=== PATIENT | male | born 1935 | race Caucasian/White ===

== ENCOUNTER → 2017-02-12 | Outpatient (CLI) | payer MEDICARE ==
[~2017-02-12] MED LIST: AMLO5 PO; ATOR10; Aspir 8181 MG; CALMAGZIN PO; LISI20 PO; METF500; METO50ER
== END | disposition home or self-care (01) ==
LOC: LAB SHORT 08:39 → PLD 08:39
DX: D22.5 Melanocytic nevi of trunk (principal)
CPT/HCPCS: 88305

== ENCOUNTER 2020-03-13 22:19 | Inpatient (IN) | payer MEDICARE ==
[~2020-03-13] VITALS: Ht 172.7 cm; Wt 81.7 kg
[2020-03-13 22:42] LABS: BASOPHILS ABSOLUTE AUTO 0.02 K/mm3 (0.00-0.23); BASOPHILS PERCENT AUTO 0 % (0-2); EOSINOPHILS ABSOLUTE AUTO 0.21 K/mm3 (0.00-0.68); EOSINOPHILS PERCENT AUTO 3 % (0-6); Hematocrit 39.6 % (37.0-53.0); Hemoglobin 13.4 g/dL (13.5-17.5); IMMATURE GRAN ABSOLUTE AUTO 0.04 K/mm3 (0.00-0.10); IMMATURE GRAN PERCENT AUTO 1 % (0-1); LYMPHOCYTES ABSOLUTE AUTO 1.77 K/mm3 (0.84-5.20); LYMPHOCYTES PERCENT AUTO 25 % (21-46); MONOCYTES PERCENT AUTO 6 % (4-13); Mean Corpuscular HGB 29.9 pg (26.0-34.0); Mean Corpuscular HGB Conc 33.8 g/dL (31.5-36.5); Mean Corpuscular Volume 88 fL (80-100); Mean Platelet Volume 9.2 fL (9.1-12.4); NEUTROPHILS ABSOLUTE AUTO 4.64 K/mm3 (1.96-9.15); NEUTROPHILS PERCENT AUTO 66 % (41-73); Platelet Count 190 K/mm3 (150-400); RDW Standard Deviation 42.4 fL (35.1-46.3); Red Blood Cell Count 4.48 M/mm3 (4.30-5.90); White Blood Cell Count 7.08 K/mm3 (4.00-11.30)
[2020-03-13 23:02] LABS: Alanine Aminotransfer (ALT/SGP 19 U/L (12-78); Albumin, Blood 3.8 g/dL (3.4-5.0); Alk Phos 168 U/L (50-136); Anion Gap 7 mmol/L (6-16); Aspartate Aminotrans (AST/SGOT 11 U/L (12-37); Bilirubin, Total 0.4 mg/dL (0.1-1.0); Blood Urea Nitrogen 19 mg/dL (8-24); Bun/Creatinine Ratio 13.3 (12.0-20.0); CO2, Blood 26 mmol/L (21-32); Chloride, Blood 106 mmol/L (98-108); Creatinine, Blood 1.43 mg/dL (0.60-1.20); Globulin, Blood 3.9 g/dL (2.2-4.0); Glomerular Filtration Rate 50 (60-); Glucose, Blood 268 mg/dL (70-99); Potassium, Blood 4.2 mmol/L (3.5-5.5); Sodium, Blood 139 mmol/L (136-145); Total Protein, Blood 7.7 g/dL (6.4-8.2); Troponin I <0.015 ng/mL (0.000-0.040)
--- NOTE | 2020-03-14 05:59 | NUR ---
PATIENT ARRIVED ON UNIT FROM ER AT 0515 TODAY 03/14/20. HE CAME INTO THE ER FROM HOME BY AMBULANCE FOR CHEST PAIN AND HTN. PATIENT CURRENTLY IS ALERT AND ORIENTED X3. HE HAS A HIGH BP. HE WAS GIVEN HIS HOME BP MEDICATIONS, IV MORPHINE, AND 1L OXYGEN NC. PATIENT DESCRIBED PAIN IN CHEST TO BE SHARP BUT "NOT BAD IT WAS IN THE ER". HE IS TOLERATING SOME SIPS OF WATER. HE REPORTED HE USES THE URNAL IF NEEDING TO VOID. HE HAS A 20G IV IN HIS LEFT AC THAT IS PATENT. HE IS [place] WITHOUT HIS HEARING AIDS IN. HE WAS A SBA MOVING FROM ER BED TO SURGICAL BED. HIS SKIN IS INTACT WITH NO SORES ON HEELS OR BOTTOM. 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 PATIENT IS VERY PLEASANT TO TALK WITH. EDUCATED PATIENT FINANCE SPECIALIST LIGHT USE AND HE VERBALLY STATED UNDERSTANDING. CALL LIGHT WITHIN REACH.
[2020-03-14 06:50] LABS: BASOPHILS ABSOLUTE AUTO 0.02 K/mm3 (0.00-0.23); BASOPHILS PERCENT AUTO 0 % (0-2); EOSINOPHILS PERCENT AUTO 0 % (0-6); Hematocrit 37.5 % (37.0-53.0); Hemoglobin 12.8 g/dL (13.5-17.5); IMMATURE GRAN ABSOLUTE AUTO 0.05 K/mm3 (0.00-0.10); IMMATURE GRAN PERCENT AUTO 0 % (0-1); LYMPHOCYTES ABSOLUTE AUTO 0.87 K/mm3 (0.84-5.20); LYMPHOCYTES PERCENT AUTO 8 % (21-46); MONOCYTES ABSOLUTE AUTO 0.32 K/mm3 (0.16-1.47); MONOCYTES PERCENT AUTO 3 % (4-13); Mean Corpuscular HGB 30.2 pg (26.0-34.0); Mean Corpuscular HGB Conc 34.1 g/dL (31.5-36.5); Mean Corpuscular Volume 88 fL (80-100); Mean Platelet Volume 9.4 fL (9.1-12.4); NEUTROPHILS ABSOLUTE AUTO 10.08 K/mm3 (1.96-9.15); NEUTROPHILS PERCENT AUTO 89 % (41-73); Platelet Count 179 K/mm3 (150-400); RDW Coefficient Variation 13.1 % (11.7-14.2); RDW Standard Deviation 42.2 fL (35.1-46.3); Red Blood Cell Count 4.24 M/mm3 (4.30-5.90); White Blood Cell Count 11.34 K/mm3 (4.00-11.30)
[2020-03-14 07:11] LABS: Albumin, Blood 3.5 g/dL (3.4-5.0); Albumin/Globulin Ratio 0.9 (0.8-1.8); Bilirubin, Total 0.7 mg/dL (0.1-1.0); Bun/Creatinine Ratio 15.3 (12.0-20.0); Creatinine, Blood 1.31 mg/dL (0.60-1.20); Globulin, Blood 3.7 g/dL (2.2-4.0); Potassium, Blood 4.9 mmol/L (3.5-5.5); Total Protein, Blood 7.2 g/dL (6.4-8.2)
--- NOTE | 2020-03-14 07:20 | NUR ---
recvd report from previous RN, pt sleeping in bed, telemetry in place, bed in lowest position, bed rails up x 2, call light in place
[2020-03-14 07:30] LABS: Creatine Kinase MB 83.4 ng/mL (0.0-3.6); Creatine Kinase MB Index 9.7 (0.0-4.0)
--- NOTE | 2020-03-14 07:36 | NUR ---
recvd critical troponin of 3.06 from Margarito in lab. Notified Dr Bañuelos, awaiting orders
[2020-03-14 09:21] LABS: International Normalized Ratio 0.93
--- NOTE | 2020-03-14 10:51 | NUR ---
0804-DR WRAY ROUNDING ON PT 0905-LAB AND EKG PERFORMED 1000-RECVD ORDERS FOR HEPARIN DRIP AND PHARMACY MANAGEMENT; DRIP STARTED PER PHARMACY INSTRTUCTIONS 1025-PT'S SON HERE TO CONSULT WITH PROVIDERS PER PT'S REQUEST
--- NOTE | 2020-03-14 11:06 | NUR ---
ECHO BEING PERFORMED BEDSIDE, DR MERA IN WITH PT AND PT'S SON
--- NOTE | 2020-03-14 11:22 | NUR ---
echocardiogram complete
[2020-03-14 12:33] LABS: Influenza A, PCR Negative (NEGATIVE); Influenza B, PCR Negative (NEGATIVE); Resp Syncytial Virus, PCR Negative (NEGATIVE); SARS-Cov-2 (COVID-19) PCR, MMC Negative (NEGATIVE)
[2020-03-14 17:21] LABS: Creatine Kinase MB 285.3 ng/mL (0.0-3.6); Creatine Kinase MB Index 12.7 (0.0-4.0)
--- NOTE | 2020-03-14 18:45 | NUR ---
TRANSFER/COBRA TRANSFER NOTED PT FROM [facility] AT 1510; RIGHT RADIAL SITE; TR BAND IN PLACE WITH 9cc IN BACK; NO BLEEDING, BRUISING OR HEMATOMA NOTED. PT A&Ox4; CALM AND COOPERATIVE WITH CARE. PT RESTING IN BED; UP 1 PERSON ASSIST. PT DENIES PAIN, CHEST PAIN, SOB, NASUEA, AND DIZZINESS. VSS. HEPARIN RESTARTED. NO OTHER ACUTE CHANGES NOTED DUIRNG SHIFT. TELEPHONE REPORT GIVEN TO DON HARRIS ASSUMING CARE OF PT AT [facility]. PT LEFT ROOM AT 1800 WITH [facility]. SON JENNIFER AT BEDSIDE.
== END 2020-03-14 18:01 | disposition short-term general hospital (02) | DRG 251 ==
LOC: ER 22:19 → ERHOLD 03-14 00:50 → SURS 03-14 00:50 → PCU 03-14 13:44
PROVIDERS: Emergency Medicine; Internal Medicine; Internal Medicine Cardiovascular Disease; ADMIT Internal Medicine
PROC: 02703ZZ Dilation of Coronary Artery, One Artery, Percutaneous Approach (ICD-10-PCS; principal; 2020-03-14)
PROC: 4A023N7 Measurement of Cardiac Sampling and Pressure, Left Heart, Percutaneous Approach (ICD-10-PCS; 2020-03-14)
PROC: B2111ZZ Fluoroscopy of Multiple Coronary Arteries using Low Osmolar Contrast (ICD-10-PCS; 2020-03-14)
DX: I21.4 Non-ST elevation (NSTEMI) myocardial infarction (principal); Z79.84 Long term (current) use of oral hypoglycemic drugs; Z79.82 Long term (current) use of aspirin; Z87.891 Personal history of nicotine dependence; I16.0 Hypertensive urgency; E11.22 Type 2 diabetes mellitus with diabetic chronic kidney disease; N18.30 Chronic kidney disease, stage 3 unspecified; E66.3 Overweight; Z68.27 Body mass index [BMI] 27.0-27.9, adult; I12.9 Hypertensive chronic kidney disease with stage 1 through stage 4 chronic kidney disease, or unspecified chronic kidney disease; I25.5 Ischemic cardiomyopathy; R32 Unspecified urinary incontinence; I44.7 Left bundle-branch block, unspecified; I25.119 Atherosclerotic heart disease of native coronary artery with unspecified angina pectoris; Z20.822 Contact with and (suspected) exposure to COVID-19
CPT/HCPCS: 0241U; 36415; 71045; 76937; 80053; 82550; 82553; 82947; 84484; 85025; 85347; 85610; 85730; 92920; 93005; 93010; 93306; 93458; 96374; 96375; 96376; 99152; 99153; 99285-25; A9270; C1725; C1769; C1887; C1894; G0378; J0360; J1644; J2250; J2270; J3010; J7030; J7050; Q9967

== ENCOUNTER → 2020-08-08 | Outpatient (CLI) | payer MEDICARE | END | disposition home or self-care (01) | LOC: LAB 09:23 → LAB SHORT 09:23 | DX: C44.311 Basal cell carcinoma of skin of nose (principal) | CPT/HCPCS: 88305 ==

== ENCOUNTER 2020-12-05 13:44 | Emergency (ER) | payer MEDICARE ==
[~2020-12-05] VITALS: Ht 172.7 cm; Wt 83.0 kg
[2020-12-05 15:47] LABS: BASOPHILS ABSOLUTE AUTO 0.01 K/mm3 (0.00-0.23); BASOPHILS PERCENT AUTO 0 % (0-2); EOSINOPHILS ABSOLUTE AUTO 0.04 K/mm3 (0.00-0.68); EOSINOPHILS PERCENT AUTO 1 % (0-6); Hematocrit 39.3 % (37.0-53.0); Hemoglobin 13.6 g/dL (13.5-17.5); IMMATURE GRAN ABSOLUTE AUTO 0.01 K/mm3 (0.00-0.10); IMMATURE GRAN PERCENT AUTO 0 % (0-1); LYMPHOCYTES ABSOLUTE AUTO 1.16 K/mm3 (0.84-5.20); LYMPHOCYTES PERCENT AUTO 17 % (21-46); MONOCYTES ABSOLUTE AUTO 0.36 K/mm3 (0.16-1.47); MONOCYTES PERCENT AUTO 5 % (4-13); Mean Corpuscular HGB 29.4 pg (26.0-34.0); Mean Corpuscular HGB Conc 34.6 g/dL (31.5-36.5); Mean Corpuscular Volume 85 fL (80-100); Mean Platelet Volume 10.2 fL (9.1-12.4); NEUTROPHILS PERCENT AUTO 77 % (41-73); Platelet Count 178 K/mm3 (150-400); RDW Standard Deviation 39.8 fL (35.1-46.3); Red Blood Cell Count 4.62 M/mm3 (4.30-5.90); White Blood Cell Count 6.98 K/mm3 (4.00-11.30)
[2020-12-05 15:59] LABS: Albumin, Blood 3.4 g/dL (3.4-5.0); Albumin/Globulin Ratio 0.8 (0.8-1.8); Bilirubin, Total 0.7 mg/dL (0.1-1.0); Bun/Creatinine Ratio 14.6 (12.0-20.0); Calcium, Blood 9.7 mg/dL (8.5-10.1); Creatinine, Blood 1.44 mg/dL (0.60-1.20); Potassium, Blood 4.3 mmol/L (3.5-5.5); Total Protein, Blood 7.4 g/dL (6.4-8.2)
[2020-12-05] MEDS ORDERED: Primidone50 MG PO (17:33)
== END 2020-12-05 18:00 | disposition home or self-care (01) ==
LOC: ER 13:44
PROVIDERS: Physician Assistant
DX: G25.0 Essential tremor (principal); R11.0 Nausea; Z79.899 Other long term (current) drug therapy; Z79.84 Long term (current) use of oral hypoglycemic drugs; Z79.82 Long term (current) use of aspirin; I25.2 Old myocardial infarction; I10 Essential (primary) hypertension; E11.9 Type 2 diabetes mellitus without complications; E78.5 Hyperlipidemia, unspecified
CPT/HCPCS: 36415; 80053; 82947; 85025; 93005; 93010; 96374; 99284-25; J2405

== ENCOUNTER → 2020-12-18 | Outpatient (CLI) | payer MEDICARE ==
[~2020-12-18] MED LIST changes: +Primidone50 MG PO
== END | disposition home or self-care (01) ==
LOC: LAB 08:00 → LAB SHORT 08:00
DX: C44.311 Basal cell carcinoma of skin of nose (principal)
CPT/HCPCS: 88305

== ENCOUNTER 2024-09-08 08:13 | Day surgery (SDC) | payer MEDICARE ==
[~2024-09-08] VITALS: Ht 170.2 cm; Wt 78.3 kg
[~2024-09-08 08:13] MED LIST changes: +ATOR80 PO; -Aspir 8181 MG; +Aspir 8181 MG PO; +CLOP75 PO; +DOXY100 PO; +ELIQUIS2.5 MG PO; +FERSU300 PO; +FURO40 PO; +LISI5 PO; -METO50ER; +METO50ER PO; +PANT20 PO; +SPIR25 PO; +VISBIOME 112.51 EACH PO
[2024-09-08] MEDS ORDERED: JANTOVEN4 M2 PO (08:47)
[2024-09-08] MEDS ORDERED: POTCHL20ER PO (08:49)
[2024-09-08] MEDS ORDERED: Lidocaine 1%-Epineph 1:200000 30 ML SDV ONE (09:37)
[2024-09-08] MEDS ORDERED: CeFAZolin Sodium 2,000 MG VIAL ONE (09:56)
[2024-09-08] MEDS ORDERED: Lidocaine HCl 4% 5 ML SDA ONE (10:18)
[2024-09-08] MEDS ORDERED: FentaNYL Citrate 50 MCG/ML 2 ML Injection ONE ×2 (10:20→15:00)
[2024-09-08] MEDS ORDERED: EPINEPhrine HCl 1 MG / ML 30ML Vial ONE ×2 (10:36→11:18)
[2024-09-08] MEDS ORDERED: Dexamethasone Sod Phos 10 MG/ML 1ML VIAL ONE (10:37)
[2024-09-08] MEDS ORDERED: Rocuronium Bromide 10 MG/ML 5ML Injection IV ONE (10:37)
[2024-09-08] MEDS ORDERED: Ondansetron HCl 2 MG / ML 2ML Vial ONE (10:37)
[2024-09-08] MEDS ORDERED: Phenylephrine HCl 100 MCG/ML-NS 10MLSYR (1MG/10ML) ONE (10:40)
--- NOTE | 2024-09-08 14:24 | NUR ---
09/08/24 1424 Poornima Wesley FSBS [address] HILL AT BEDSIDE AND NOTIFIED
[2024-09-08] MEDS ORDERED: Tranexamic Acid 100 ML IV ONE (14:29)
[2024-09-08 15:30] VITALS: BP 169/78
[2024-09-14] MEDS ORDERED: DOCU100 PO (13:59)
[2024-09-14] MEDS ORDERED: BACITRACIN ZIN1 EAC1 TOP (13:59)
== END 2024-09-08 15:33 | disposition other institution (70) ==
LOC: ORSCSDS 08:13
PROVIDERS: Otolaryngology
PROC: 0HR1X74 Replacement of Face Skin with Autologous Tissue Substitute, Partial Thickness, External Approach (ICD-10-PCS; principal; 2024-09-08 10:00)
DX: C44.311 Basal cell carcinoma of skin of nose (principal); Z86.73 Personal history of transient ischemic attack (TIA), and cerebral infarction without residual deficits; I25.2 Old myocardial infarction; I25.10 Atherosclerotic heart disease of native coronary artery without angina pectoris; I12.9 Hypertensive chronic kidney disease with stage 1 through stage 4 chronic kidney disease, or unspecified chronic kidney disease; E11.22 Type 2 diabetes mellitus with diabetic chronic kidney disease; N18.4 Chronic kidney disease, stage 4 (severe); Z79.84 Long term (current) use of oral hypoglycemic drugs; Z79.01 Long term (current) use of anticoagulants; Z79.82 Long term (current) use of aspirin
CPT/HCPCS: 82947; J0165; J0690; J1100; J2003; J2371; J2405; J2704; J3010; J7120

== ENCOUNTER 2024-09-08 15:09 | Inpatient (IN) | payer MEDICARE ==
[~2024-09-08 15:09] MED LIST changes: +JANTOVEN4 M2 PO; +POTCHL20ER PO
[2024-09-08 16:02] VITALS: BP 166/91
[2024-09-08 16:20] VITALS: BP 182/98
[2024-09-08] MEDS ORDERED: Insulin Human Lispro 100 Units/ML 3ML Syringe SC SCH (16:30)
[2024-09-08] MEDS ORDERED: HydrALAZINE HCl 20 MG / ML 1ML Vial IV PRN (16:40)
[2024-09-08 17:00] LABS: BASOPHILS ABSOLUTE AUTO 0.02 K/mm3 (0.00-0.23); BASOPHILS PERCENT AUTO 0 % (0-2); EOSINOPHILS ABSOLUTE AUTO 0.00 K/mm3 (0.00-0.68); EOSINOPHILS PERCENT AUTO 0 % (0-6); Hematocrit 32.6 % (37.0-53.0); Hemoglobin 10.8 g/dL (13.5-17.5); IMMATURE GRAN ABSOLUTE AUTO 0.04 K/mm3 (0.00-0.10); IMMATURE GRAN PERCENT AUTO 0 % (0-1); LYMPHOCYTES ABSOLUTE AUTO 0.39 K/mm3 (0.84-5.20); LYMPHOCYTES PERCENT AUTO 4 % (21-46); MONOCYTES ABSOLUTE AUTO 0.07 K/mm3 (0.16-1.47); MONOCYTES PERCENT AUTO 1 % (4-13); Mean Corpuscular HGB Conc 33.1 g/dL (31.5-36.5); Mean Corpuscular Volume 90 fL (80-100); NEUTROPHILS ABSOLUTE AUTO 8.99 K/mm3 (1.96-9.15); NEUTROPHILS PERCENT AUTO 95 % (41-73); NRBC ABSOLUTE 0.00 K/mm3 (0.00-0.02); NRBC Auto 0.0 /100 WBC (0.0-0.2); Platelet Count 134 K/mm3 (150-400); RDW Coefficient Variation 13.6 % (11.7-14.2); RDW Standard Deviation 44.7 fL (35.1-46.3)
[2024-09-08 17:27] VITALS: BP 153/84
[2024-09-08] MEDS ORDERED: Tranexamic Acid 100 ML IV ONE (18:00)
[2024-09-08 18:04] VITALS: BP 138/68
--- NOTE | 2024-09-08 18:11 | NUR ---
POST OP/DIRECT ADMISSION: RECIEVED BEDSIDE REPORT AND PT TO UNIT AT 1602. PT IS A/O, [place]- PT HEARS BETTER IF SPEACH IS SLOW. HTN NOTED- OTHERWISE VSS. SURICAL SITE AT FOREHEAD HAS XEROFORM BUT IS OTHERWISE JAVASCRIPT FRONT END DEVELOPER AND WEEPING RED BLOOD INTO PT'S R EYE. SURGICAL SITE ABOVE FOREHEAD DRESSED WIH GUAZE AND TAPE, MINIMAL RED BLEED. BLEEDING DABBED WITH GAUZE AND FACE CLEANSED WITH WASH CLOTH CAREFULLY. PT REPORTS MINIMAL PAIN 4/10, PT SAT UP RIGHT IN BED TO HELP PREVENT BLOOD FROM DRIPPING INTO EYE. THERE IS SOME BLEEDING AT R NARE. DR. RAMON CALLED AND NOTIFIED THAT PT ARRIVED, SEE NEW ORDERS. DR. RAMON IN ROOM SHORTLY AFTER. TELE BOX APPLIED AND VERIFIED BY MARYAN GODWIN. AFIB 87 AT 1645, PT DENIES CP. IV HYDRALAZINE GIVEN PER ORDER AND BP IMPROVED. BLEEDING CONTINUED AND STILL DRIPPING FROM WOUND SITE. DR. VILLARREAL NOTIFIED, SEE NEW ORDER FOR 2ND DOSE OF TXA. VSS AT THIS TIME. MONITORING BLEEDING. CALL LIGHT IN REACH AND BED ALARM SET FOR SAFETY.
[2024-09-08 19:30] VITALS: BP 149/86
[2024-09-08] MEDS ORDERED: Bacitracin Zinc Oint 1GRAM UD Packet TOP SCH (21:00)
--- NOTE | 2024-09-08 23:15 | NUR ---
PROVIDER UPDATE DR. JAMES NOTIFIED OF PT'S CONTINOUS AFIB W/ BBB, ST ELEVATION MLO AT 102 BEATS PER MIN. PT DENIES CHEST PAIN, PRESSURE, SOB OR ANY DISCOMFORT. ORDER EKG OBTAINED. CLIENT CARE COORDINATOR REPORTS NO CHANGE SINCE ADMISSION. PROVIDER ALSO UPDATED ON SURGICAL SITE, HEAD/NARES, CONTINOUS BLEEDING. NEW ORDERS OBTAINED FOR WOUND CARE. WILL IMPLEMENT DIRECTED.
[2024-09-08 23:27] VITALS: BP 142/63
[2024-09-09 04:40] VITALS: BP 183/74
[2024-09-09 05:37] VITALS: BP 165/78
[2024-09-09 06:16] LABS: BASOPHILS ABSOLUTE AUTO 0.01 K/mm3 (0.00-0.23); BASOPHILS PERCENT AUTO 0 % (0-2); EOSINOPHILS ABSOLUTE AUTO 0.00 K/mm3 (0.00-0.68); EOSINOPHILS PERCENT AUTO 0 % (0-6); Hematocrit 30.0 % (37.0-53.0); Hemoglobin 10.2 g/dL (13.5-17.5); IMMATURE GRAN ABSOLUTE AUTO 0.06 K/mm3 (0.00-0.10); IMMATURE GRAN PERCENT AUTO 1 % (0-1); LYMPHOCYTES ABSOLUTE AUTO 0.72 K/mm3 (0.84-5.20); LYMPHOCYTES PERCENT AUTO 8 % (21-46); MONOCYTES ABSOLUTE AUTO 0.67 K/mm3 (0.16-1.47); MONOCYTES PERCENT AUTO 7 % (4-13); Mean Corpuscular HGB Conc 34.0 g/dL (31.5-36.5); Mean Corpuscular Volume 90 fL (80-100); NEUTROPHILS ABSOLUTE AUTO 7.58 K/mm3 (1.96-9.15); NEUTROPHILS PERCENT AUTO 84 % (41-73); NRBC ABSOLUTE 0.00 K/mm3 (0.00-0.02); NRBC Auto 0.0 /100 WBC (0.0-0.2); Platelet Count 136 K/mm3 (150-400); RDW Coefficient Variation 13.8 % (11.7-14.2); RDW Standard Deviation 45.0 fL (35.1-46.3)
[2024-09-09 06:21] LABS: Alanine Aminotransfer (ALT/SGP 22.0 U/L (12-78); Albumin, Blood 3.1 g/dL (3.4-5.0); Albumin/Globulin Ratio 0.8 (0.8-1.8); Anion Gap 12.0 mmol/L (3-11); Aspartate Aminotrans (AST/SGOT 15.0 U/L (12-37); Bilirubin, Total 0.5 mg/dL (0.1-1.0); Blood Urea Nitrogen 45.0 mg/dL (8-24); CO2, Blood 22.0 mmol/L (21-32); Calcium, Blood 8.1 mg/dL (8.5-10.1); Chloride, Blood 107.0 mmol/L (98-108); Creatinine, Blood 2.67 mg/dL (0.60-1.20); Globulin, Blood 3.7 g/dL (2.2-4.0); Glucose, Blood 140.0 mg/dL (70-99); Potassium, Blood 4.7 mmol/L (3.5-5.5); Sodium, Blood 136.0 mmol/L (136-145); Total Protein, Blood 6.8 g/dL (6.4-8.2)
--- NOTE | 2024-09-09 06:31 | NUR ---
PROVIDER UPDATE DR. JAMES NOTIFIED OF INCREASED NASAL BLEEDING, REQUIRING HOURLY DRESSING CHANGE/REINFORCEMENT THIS MORNING. ALSO NOTIFIED OF PT REPORTING HX OF EPISTAXIS THAT REQUIRED ED INTERVENTION. NO NEW ORDERS AT THIS TIME. PROVIDER PLANS TO DISCUSS WITH DAY HOSPITALIST.
[2024-09-09 07:21] VITALS: BP 170/89
--- NOTE | 2024-09-09 07:48 | NUR ---
SHIFT SUMMARY INCISION TO RIGHT NARE CONTINUES TO BLEED, DR. RAMON IN TO ROUND ON PATIENT THIS MORNING. NO NEW ORDERS, AWAITING FOR DR. VILLARREAL TO F/U. DRESSING REINFORCED FREQUENTLY, SEE PREVIOUS NOTE. PT A/OX4. PAIN MANAGED PER EMAR. CBG STABLE. PT VOIDING IN URINAL. POOR PO INTAKE, DRINKING WATER IND. TELE IN PLACE, AFIB AT 66 BPM PER TECH. PT CURRENTLY RESTING IN BED WITH CALL IN REACH. IS ABLE TO MAKE NEEDS KNOW. BEDSIDE REPORT GIVEN TO DAY RN.
[2024-09-09] MEDS ORDERED: Tranexamic Acid 1000 MG/10 ML 10ML Vial (SDV) TOP ONE (07:55)
[2024-09-09] MEDS ORDERED: Tranexamic Acid 100 ML IV ONE (08:20)
[2024-09-09] MEDS ORDERED: Magnesium Hydroxide Conc 10 ML UDC PO PRN (08:35)
--- NOTE | 2024-09-09 10:57 | NUR ---
DRESSING CHANGES PATIENT HAS HAD 3 DRESSING CHANGES THIS AM. NON ADHERANT AND GAUZE, BACITRACIN PLACED.
[2024-09-09 14:25] VITALS: BP 161/74
[2024-09-09 15:35] LABS: Hematocrit 31.6 % (37.0-53.0); Hemoglobin 10.4 g/dL (13.5-17.5)
--- NOTE | 2024-09-09 15:54 | NUR ---
SHIFT SUMMARY PATIENT AOX4, FACIAL INCISIONS CONTINUE TO BLEED. MULTIPLE DRESSING CHANGES T/O SHIFT. PATIENT UP TO CHAIR WITH PT. TOLERATING PO INTAKE, VOIDING, PASSES GAS. DR VILLARREAL IN THIS AM TO ASSESS. PATIENT DENIES PAIN. ABLE TO MAKE NEEDS KNOWN. CALL LIGHT IN REACH. VSS.
[2024-09-09 19:47] VITALS: BP 157/68
--- NOTE | 2024-09-09 22:51 | NUR ---
PROVIDER UPDATE PER MANAGER PRACTICE, PT HR 35-40 BPM. PT APPEARS TO BE SLEEPING SOUNDLY, RESP EVEN. HOSPITALIST NOTIFIED, NEW ORDER TO D/C METOPROLOL OBTAINED.
--- NOTE | 2024-09-09 23:15 | NUR ---
UPDATE 3.1 SECOND PAUSE AT THIS TIME PER DELIVERY MOTORCYCLE DRIVER. PT ASYMPTOMATIC, DENIES CHEST PAIN OR ANY DISCOMFORT. HR RANGING FROM 35-100 BPM. VITALS AT THIS TIME STABLE, SEE CHART. PT DENIES NEEDS AND REPORTS BEING TIRED BECAUSE "I JUST DIDNT SLEEP MUCH LAST NIGHT CAUSE." HAS CALL LIGHT IN REACH.
[2024-09-09 23:18] VITALS: BP 148/69
[2024-09-10] VITALS (7 sets, daily range): BP systolic 143–158; BP diastolic 50–77
[2024-09-10 05:08] LABS: BASOPHILS ABSOLUTE AUTO 0.02 K/mm3 (0.00-0.23); BASOPHILS PERCENT AUTO 0 % (0-2); EOSINOPHILS ABSOLUTE AUTO 0.04 K/mm3 (0.00-0.68); EOSINOPHILS PERCENT AUTO 1 % (0-6); Hematocrit 27.9 % (37.0-53.0); Hemoglobin 9.3 g/dL (13.5-17.5); IMMATURE GRAN ABSOLUTE AUTO 0.03 K/mm3 (0.00-0.10); IMMATURE GRAN PERCENT AUTO 0 % (0-1); LYMPHOCYTES ABSOLUTE AUTO 1.01 K/mm3 (0.84-5.20); LYMPHOCYTES PERCENT AUTO 12 % (21-46); MONOCYTES ABSOLUTE AUTO 0.59 K/mm3 (0.16-1.47); MONOCYTES PERCENT AUTO 7 % (4-13); Mean Corpuscular HGB Conc 33.3 g/dL (31.5-36.5); Mean Corpuscular Volume 89 fL (80-100); NEUTROPHILS ABSOLUTE AUTO 6.43 K/mm3 (1.96-9.15); NEUTROPHILS PERCENT AUTO 79 % (41-73); NRBC ABSOLUTE 0.00 K/mm3 (0.00-0.02); NRBC Auto 0.0 /100 WBC (0.0-0.2); Platelet Count 118 K/mm3 (150-400); RDW Coefficient Variation 13.6 % (11.7-14.2); RDW Standard Deviation 44.7 fL (35.1-46.3)
--- NOTE | 2024-09-10 05:10 | NUR ---
SHIFT SUMMARY PT A/OX4. DRESSING TO FACE INTACT, NO BLEEDING NOTED OR DRESSING CHANGE TONIGHT. MEDICATED FOR PAIN X 1. TELE IN PLACE, PT HAD EPISODES OF BRADYCARDIA PER SHOOTING GALLERY OPERATOR- SEE PREVIOUS NOTE. BLE ELEVATED ON PILLOWS WITH SCDS ON, 3+ EDEMA NOTED. IS VOIDING IND WITH URINAL, URINE LIGHT YELLOW IN COLOR. PT CONT TO HAVE POOR PO INTAKE OTHER THAN WATER, ONE ENSURE AND PUDDING CUP. DENIES N/V. NO COVERAGE REQUIRED FOR HS CBG. TWO PERSON MAX ASSIST FROM CHAIR TO BED R/T WEAKNESS. IS PLEASANT AND COOPERATIVE WITH CARE. USES CALL LIGHT APPROPRIATELY AND IS ABLE TO MAKE NEEDS KNOWN. PT CURRENTLY RESTING IN BED WITH EYES CLOSED AND RESP EVEN, HOB ELEVATED FOR COMFORT/PRN. HAS CALL LIGHT IN REACH. PLAN TO WORK WITH THERAPY TODAY. WILL GIVE REPORT TO ONCOMING RN.
[2024-09-10 05:27] LABS: Anion Gap 8.0 mmol/L (3-11); Blood Urea Nitrogen 52.0 mg/dL (8-24); CO2, Blood 25.0 mmol/L (21-32); Calcium, Blood 7.7 mg/dL (8.5-10.1); Chloride, Blood 106.0 mmol/L (98-108); Creatinine, Blood 3.11 mg/dL (0.60-1.20); Glucose, Blood 144.0 mg/dL (70-99); Potassium, Blood 4.1 mmol/L (3.5-5.5); Sodium, Blood 135.0 mmol/L (136-145)
--- NOTE | 2024-09-10 05:34 | NUR ---
UPDATE PER SHIRT TRIMMER, PT HAD 6 BEATS OF BIGEMINY NOTED. PT DENIES CHEST PAIN, PRESSURE, FLUTTERING OR ANY CHANGES. CURRENT HR IS AFIB WITH BBB AT 54BPM, PER TECH. PT HAS CALL LIGHT IN REACH.
--- NOTE | 2024-09-10 05:58 | NUR ---
UPDATE PHOTOGRAPHER AERIAL REPORTED 3.01 SECOND PAUSE, PT SLEEPING SOUNDLY.
--- NOTE | 2024-09-10 06:33 | NUR ---
PROVIDER NOTIFIED PER SENIOR SALES EXECUTIVE CHRIS, PT HAD 2.8 SECOND PAUSE WHICH IS THE SECOND TIME IN LESS THAN AN HR, ALONG WITH A 6 BEAT RUN OF BIGEMINY X 1. PT DENIES DISCOMFORT OR DISTRESS. ERIKA NOTIFIED, NO NEW ORDERS. PLAN TO CONTINUE TELE MONITORING. PT CURRENTLY RESTING IN BED WITH CALL LIGHT IN REACH.
--- NOTE | 2024-09-10 07:46 | NUR ---
TELE UPDATE TELE CALLED WITH A 2.5 SECOND PAUSE. THIS RN CHECKED ON PATIENT, ASYMPTOMATIC AT THIS TIME. CALL PLACED TO DR BERNARD TO NOTIFY.
--- NOTE | 2024-09-10 16:47 | NUR ---
TELE UPDATE V BELT SKIVER CALLED WITH 18 BEAT RUN OF SVT, @[address] MARCO ANTONIO HANNON AND PLAN TO ORDER ECHO IN AM. PATIENT IS ASLEEP IN BED AND THIS RN IS ABLE TO AROUSE PATIENT WHO DENIES CHEST PAIN, SOB. VSS 144/50, HR A-FIB @65 SPO2 100% ON RA. SCOOBY HOSE IN PLACE. +2 EDEMA TO BILAT FEET AND ANKLES. CALL LIGHT IN REACH.
--- NOTE | 2024-09-11 04:12 | NUR ---
SHIFT SUMMARY SIRISHA WAS ALERT AND FULLY ORIENTED ON ASSESSMENT. OINTMENT APPLIED TO FACIAL SKIN FLAP. PT DENIES PAIN. NO EVENTS REPORTED FROM TELEMETRY TONIGHT, NO CONTINUING FACIAL BLEEDING. PT RESTING IN BED, NO NOTED CHANGES OR ACUTE EVENTS TONIGHT.
[2024-09-11 05:05] VITALS: BP 151/76
[2024-09-11 05:14] LABS: Hematocrit 28.6 % (37.0-53.0); Hemoglobin 9.6 g/dL (13.5-17.5); Mean Corpuscular HGB Conc 33.6 g/dL (31.5-36.5); Mean Corpuscular Volume 90 fL (80-100); NRBC ABSOLUTE 0.00 K/mm3 (0.00-0.02); NRBC Auto 0.0 /100 WBC (0.0-0.2); Platelet Count 128 K/mm3 (150-400); RDW Coefficient Variation 13.6 % (11.7-14.2); RDW Standard Deviation 45.1 fL (35.1-46.3)
[2024-09-11 05:48] LABS: Anion Gap 8.0 mmol/L (3-11); Blood Urea Nitrogen 55.0 mg/dL (8-24); CO2, Blood 27.0 mmol/L (21-32); Calcium, Blood 8.4 mg/dL (8.5-10.1); Chloride, Blood 106.0 mmol/L (98-108); Creatinine, Blood 3.4 mg/dL (0.60-1.20); Glucose, Blood 125.0 mg/dL (70-99); Potassium, Blood 4.3 mmol/L (3.5-5.5); Sodium, Blood 137.0 mmol/L (136-145)
[2024-09-11 07:01] VITALS: BP 130/68
--- NOTE | 2024-09-11 09:43 | NUR ---
THERAPY: THERAPY IN ROOM TO WORK TO MOBILIZE PATIENT. PT DENIES PAIN. WILL CONT TO MONITOR.
--- NOTE | 2024-09-11 10:32 | NUR ---
CARDIAC: DIE ENGRAVER CALLED TO REPORT INCREASED ST ELEVATION. PT ASYMPTOMATIC. EKG DONE AND REVIEWED BY HOSPITALIST. CARDIOLOGY CONTACTED BY HOSPITALIST. AWAITING ECHO TO BE DONE. WILL CONT TO MONITOR.
--- NOTE | 2024-09-11 10:49 | NUR ---
ECHO: IMAGING IN ROOM FOR ECHO.
--- NOTE | 2024-09-11 11:59 | NUR ---
WOUND CARE: PT WOUNDS CLEANED AND REDRESSED. MINIMAL DRAINAGE. DENIES PAIN.
--- NOTE | 2024-09-11 12:44 | NUR ---
CARDIOLOGY: LACE WEAVER IN TO SEE PATIENT. NO NEW ORDERS AT THIS TIME. ECHO REPORT STILL PENDING.
[2024-09-11 14:35] VITALS: BP 110/79
--- NOTE | 2024-09-11 18:00 | NUR ---
PT HAS HAD SOME TELE CHANGES THIS SHIFT, NOTED ST ELEVATION. ASYMPTOMATIC. AFIB, RATE CONTROLLED. CARDIOLOGY CONSULTED. ECHO COMPLETED. PT RESTARTED ON METOPROLOL. CARDIOLOGY DISCUSSED POSSIBLE PACEMAKER IN THE FUTURE WHICH PT HAS NO DESIRE FOR. PALLIATIVE CARE CONSULT ORDERED. PT MOBILIZED WITH THERAPY AND NURSING STAFF. BM THIS EVENING, BLACK. NO ACTIVE FACIAL BLEEDING. DRESSING CHANGED THIS AM. CONT TO HOLD BLOOD THINNER. BLOOD SUGARS STABLE. EATING FAIR. VOIDING WELL. AM LABS TO REPEAT.
[2024-09-11 19:01] VITALS: BP 151/66
[2024-09-12 03:40] VITALS: BP 142/75
--- NOTE | 2024-09-12 04:15 | NUR ---
SHIFT SUMMARY VSS; TELE CALLED ONCE FOR PT EXPERIENCING BRADYCARDIA OF 30 BPM FOR 3 SECONDS. CURRENT RATE AND RHYTHM AFIB @ 51 W/ BBB. PT HAS SLEPT T/O THE ENTIRE NIGHT. HE HAS NOT REQUIRED PAIN MEDICATION. ONE VOID NOTED BEFORE BED, PT ENDORSES A GOOD BM WELL. DRESSING APPEARS OVERALL INTACT, SANGUINEOUS DRAINAGE NOTED. PT TOLLERATING PO INTAKE W/O N/V. PLAN TO GET AM LABS AND CONTINUE CARE PER MD. THE PATIENT IS CURRENTLY SLEEPING, IN NO DISTRESS, CALL LIGHT IN REACH
[2024-09-12 05:46] VITALS: BP 146/65
[2024-09-12 05:53] LABS: Hematocrit 29.0 % (37.0-53.0); Hemoglobin 9.8 g/dL (13.5-17.5); Mean Corpuscular HGB Conc 33.8 g/dL (31.5-36.5); Mean Corpuscular Volume 89 fL (80-100); NRBC ABSOLUTE 0.00 K/mm3 (0.00-0.02); NRBC Auto 0.0 /100 WBC (0.0-0.2); Platelet Count 133 K/mm3 (150-400); RDW Coefficient Variation 13.5 % (11.7-14.2); RDW Standard Deviation 44.0 fL (35.1-46.3)
[2024-09-12 06:17] LABS: Anion Gap 8.0 mmol/L (3-11); Blood Urea Nitrogen 55.0 mg/dL (8-24); CO2, Blood 28.0 mmol/L (21-32); Calcium, Blood 8.5 mg/dL (8.5-10.1); Chloride, Blood 106.0 mmol/L (98-108); Creatinine, Blood 3.43 mg/dL (0.60-1.20); Glucose, Blood 138.0 mg/dL (70-99); Potassium, Blood 4.2 mmol/L (3.5-5.5); Sodium, Blood 138.0 mmol/L (136-145)
--- NOTE | 2024-09-12 06:26 | NUR ---
CARDIAC UPDATE THE PATIENT HAD A PAUSE OF 2.89 SECONDS
[2024-09-12 07:22] VITALS: BP 147/67
--- NOTE | 2024-09-12 11:32 | NUR ---
WOUNDCARE: WOUND CLEANED AND DRESSING CHANGED PRN. MINIMAL LEAKAGE OF SANGUINOUS FLUID. PT TOLERATED WELL. DENIES PAIN.
--- NOTE | 2024-09-12 12:41 | NUR ---
CARDIAC: PT HAD RUN OF BIGEMINY. ASYMPTOMATIC.
--- NOTE | 2024-09-12 13:15 | NUR ---
WOUND CARE: CHERELLE IN TO EVALUATE PT WOUNDS. DR DID SOME DEBRIDEMENT THAT CAUSED BLEEDING IN FACE. DRESSING REPLACED. WOULD LIKE PT TO SHOWER LATER TO WASH FACE WITH HYDROGEN PEROXIDE AND SALINE MIX. DOES NOT RECOMMEND RESTART OF BLOOD THINNER AT THIS TIME WHEN ASKED. WILL CONT WOUND CARE ORDERED.
[2024-09-12 14:42] VITALS: BP 121/60
--- NOTE | 2024-09-12 17:35 | NUR ---
WOUNDCARE: SALINE AND HYDROGEN PEROXIDE USED PER ORDERS TO CLEAN HEAD AND FACE. HEAD DRESSING REPLACED NEEDED. FACIAL INCISIONS OPEN TO AIR WITHOUT ANY ACTIVE DRAINAGE.
--- NOTE | 2024-09-12 18:12 | NUR ---
PT HAS BEEN STABLE THIS SHIFT. PT HAS HAD SOME CARDIAC EVENTS WHICH THE VOCATIONAL CHILDCARE TEACHER IS AWARE. PT HAD 2 PAUSES THIS AM. PT ALSO HAD RUNS OF BIGEMINY AND ST ELEVATION. ASYMPTOMATIC. AFIB RATE CONTROLLED. METOPROLOL DOSE REDUCED. PT NEEDS ZIO PATCH PLACED AT DISCHARGE. DR VILLARREAL IN TO ASSESS WOUNDS AND IS HAPPY WITH PROGRESS. DEBRIDMENT AND CLEANING DONE BY THIS RN PER ORDERS. DR VILLARREAL DOES NOT RECOMMEND RESTART OF BLOOD THINNERS AT THIS TIME. AM LABS TO REPEAT. PT TOLERATING DIET. BLOOD SUGARS STABLE. BM TODAY, CONT TO BE BLACK IN COLOR. PT MOBILIZED WELL WITH STAFF TO WALK IN HALLWAYS.
[2024-09-12 19:34] VITALS: BP 115/62
[2024-09-12 23:50] VITALS: BP 134/67
[2024-09-13] VITALS (7 sets, daily range): BP systolic 113–145; BP diastolic 54–90
[2024-09-13 06:01] LABS: Hematocrit 27.9 % (37.0-53.0); Hemoglobin 9.3 g/dL (13.5-17.5); Mean Corpuscular HGB Conc 33.3 g/dL (31.5-36.5); Mean Corpuscular Volume 90 fL (80-100); NRBC ABSOLUTE 0.00 K/mm3 (0.00-0.02); NRBC Auto 0.0 /100 WBC (0.0-0.2); Platelet Count 129 K/mm3 (150-400); RDW Coefficient Variation 13.3 % (11.7-14.2); RDW Standard Deviation 44.0 fL (35.1-46.3)
[2024-09-13 06:26] LABS: Anion Gap 8.0 mmol/L (3-11); Blood Urea Nitrogen 57.0 mg/dL (8-24); CO2, Blood 29.0 mmol/L (21-32); Calcium, Blood 8.3 mg/dL (8.5-10.1); Chloride, Blood 104.0 mmol/L (98-108); Creatinine, Blood 3.41 mg/dL (0.60-1.20); Glucose, Blood 145.0 mg/dL (70-99); Potassium, Blood 3.8 mmol/L (3.5-5.5); Sodium, Blood 137.0 mmol/L (136-145)
--- NOTE | 2024-09-13 07:19 | NUR ---
ASSUMPTION NOTE: THIS RN TO ASSUME CARE OF PATIENT. PATIENT SITTING UP IN CHAIR RESTING,EASILY AROUSABLE TO VOICE. PATIENT DENIED ANY CHEST PAIN/PRESSURE. NO PAIN IN GENERAL. VITAL SIGNS TAKEN AND PATIENT STABLE. PATIENT AWAITING BREAKFAST. HAS CALL LIGHT WITHIN REACH STATING NOTHING ELSE IS NEEDED AT THIS TIME.
--- NOTE | 2024-09-13 07:46 | NUR ---
SUMMARY PT INC CONTINUE DRY WITH NO EVIDENCE OF ACTIVE BLEED. PT DENIES PAIN. INC APPEAR CLEAN.
--- NOTE | 2024-09-13 09:13 | NUR ---
ROUNDED: MARCO ANTONIO ROUNDED AND SPOKE WITH PATIENT. HE WILL BE GETTING DISCHARGE TODAY WITH A ZIOPATCH AND TO FOLLOW UP WITH [facility] DEPENDING ON RESULTS WITHIN TWO WEEKS OF ZIO PATCH TO GET A PACEMAKER PLACED IF NEEDED. PATIENT EXPRESSED HE WOULD LIKE TO TALK WITH HIS SON WHO IS HIS HEALTH CARE PROXY PRIOR TO DECIDING ANYTHING, MD AWARE.
--- NOTE | 2024-09-13 13:47 | NUR ---
ATTEMPTED TO MEET WITH PT THIS AFTERNOON, BUT HE STATES HE ISN'T INTERESTED, HE WANTS TO WAIT UNTIL HE HAS DISCHARGED (TODAY) AND TO HAVE SOME TIME TO TALK WITH HIS SON BEFORE HE MAKES ANY FURTHER DECISIONS.
--- NOTE | 2024-09-13 17:23 | NUR ---
SHIFT SUMMARY: PATIENT IS ALERT AND ORIENTED X4 & COOPERATIVE WITH HIS CARE, IS HARD OF HEARING. PATIENT IS ON TELE SHOWING AFIB WITH CONTROLLED RATE,SEE OTHER NOTES FOR MORE INFORMATION. PATIENT WOUND CLEANED TODAY PER ORDERS AND PHOTOS UPDATED IN THE CHART. PLAN WILL BE TO DISCHAREGE TOMORROW TO [facility] PATIENT AND SON REQUESTED IT. POLYSOMNOGRAPHY TECHNOLOGIST TO WORK ON TRANSPORATION TOMORROW. PATIENT AWARE HE WILL FOLLOW UP WITH DR.YUN VARELA TO GET THE SECOND PORTION OF SURGERY DONE. PATIENT TO GET ZIO PATCH PLACED PRIOR TO DISCHARGE AND AWARE POSSIBLE PACE MAKER AFTER GETTING ZIO PATCH REMOVED, PATIENT EXPRESSED HE WOULD LIKE TO TALK TO HIS SON PRIOR TO GETTING THAT PLACED. MD AND THIS RN WENT OVER WHAT THAT PROCEDURE WOULD LOOK LIKE IF HE NEEDED IT. PATIENT WALKED AROUND THE UNIT THROUGHOUT THE SHIFT WITH GAIT BELT AND WALKER AND TOLERATED IT WELL. PATIENT SITTING IN CHAIR MOST OF THE DAY. CURRENTLY EATING DINNER, HAS CALL LIGHT WITHIN REACH AND STATING NOTHING ELSE IS NEEDED AT THIS TIME.
[2024-09-14 02:55] VITALS: BP 147/62
--- NOTE | 2024-09-14 06:33 | NUR ---
SHIFT SUMMARY NOC. 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 NO ACTIVE BLEEDING OR DRAINAGE FROM INCISION. PT DENIES PAIN. PT VOIDING URINE, PT AMBULATING TO BATHROOM. TELEMETRY INTACT WITH NO REPORTED EVENTS. TERE PATCH INTACT. PT A/O X4 AND KETCHIKAN. PT MAKES NEEDS KNOWN, CALL LIGHT IN REACH.
[2024-09-14 07:53] VITALS: BP 142/67
[2024-09-14] MEDS ORDERED: ATOR80 PO (13:58)
[2024-09-14] MEDS ORDERED: ELIQUIS2.5 MG PO (13:59)
[2024-09-14] MEDS ORDERED: BACITRACIN ZIN1 EAC1 TOP ×2 (13:59)
[2024-09-14] MEDS ORDERED: DOCU100 PO ×2 (13:59)
--- NOTE | 2024-09-14 15:09 | NUR ---
DISCHARGE PT AMBULATING WELL IN ROOM AND HALLWAYS. CALLS APPROPRIATLY. IV REMOVED WNL. ALL INSTRUCTIONS GONE OVER WITH PATIENT AND SON. MEDICATIONS FAXED TO [facility] AND PATIENT ALREADY RECIEVED NOTIFICATION THEY ARE READY. ASSISTED INTO HOME CLOTHES AND PATIENT ESCORTED OUT VIA WHEELCHAIR. ALL QUESTIONS ANSWERED. SURGICAL SITE REMAINED WELL DRESSED WITH NO BLEEDING NOTED.
== END 2024-09-14 15:07 | disposition home health service (06) | DRG 919 ==
LOC: SURS 15:09
PROVIDERS: Internal Medicine; ADMIT Student in an Organized Health Care Education/Training Program
DX: L76.21 Postprocedural hemorrhage of skin and subcutaneous tissue following a dermatologic procedure (principal); I50.23 Acute on chronic systolic (congestive) heart failure; I13.0 Hypertensive heart and chronic kidney disease with heart failure and stage 1 through stage 4 chronic kidney disease, or unspecified chronic kidney disease; N18.4 Chronic kidney disease, stage 4 (severe); I25.10 Atherosclerotic heart disease of native coronary artery without angina pectoris; D50.9 Iron deficiency anemia, unspecified; I48.91 Unspecified atrial fibrillation; E78.5 Hyperlipidemia, unspecified; E11.22 Type 2 diabetes mellitus with diabetic chronic kidney disease
CPT/HCPCS: 36415; 80048; 80053; 82947; 85014; 85018; 85025; 85027; 93005; 93010; 93246; 93306; 96374; 96375; 97110; 97116; 97162; 97165; 97530; 97530-CQ; 97535; A9270; G0378; G0379; J0360; J2470